=== PATIENT | male | born 1950 ===

== ENCOUNTER 2024-12-08 09:00 | Outpatient (CLI) | payer MEDICARE, OTHER | END 2024-12-08 09:01 | disposition home or self-care (01) | LOC: CSHSLEEP 09:00 | PROVIDERS: ATTEND Internal Medicine Critical Care Medicine | DX: G47.33 Obstructive sleep apnea (adult) (pediatric) (principal); R53.83 Other fatigue; R09.89 Other specified symptoms and signs involving the circulatory and respiratory systems; R06.83 Snoring; E66.9 Obesity, unspecified; Z68.38 Body mass index [BMI] 38.0-38.9, adult; G25.89 Other specified extrapyramidal and movement disorders | CPT/HCPCS: 95811 ==